=== PATIENT | male | born 1985 | race Caucasian/White ===

== ENCOUNTER → 2020-03-16 | Outpatient (CLI) | payer BC | LOC: RAD 14:09 | PROVIDERS: ATTEND Nurse Practitioner | DX: M54.40 Lumbago with sciatica, unspecified side (principal) ==

== ENCOUNTER → 2020-04-05 | Outpatient (CLI) | payer BC | LOC: RAD 14:37 | PROVIDERS: ATTEND Nurse Practitioner | DX: M47.27 Other spondylosis with radiculopathy, lumbosacral region (principal); M51.27 Other intervertebral disc displacement, lumbosacral region ==